=== PATIENT | male | born 1960 ===

== ENCOUNTER 2022-05-10 10:47 | Outpatient (CLI) | payer OTHER | END 2022-05-10 10:48 | disposition short-term general hospital (02) | LOC: EMS 10:47 | DX: I21.3 ST elevation (STEMI) myocardial infarction of unspecified site (principal) | CPT/HCPCS: A0425; A0427 ==

== ENCOUNTER 2023-07-28 10:26 | Outpatient (CLI) | payer MEDICARE, OTHER ==
[2023-07-28 18:00] LABS: CHOL/HDL RATIO 6.1 (<5.0); CHOLESTEROL 233 mg/dL; HDL CHOLESTEROL 38 mg/dL; LDL CHOLESTEROL,CALCULATED 163 mg/dL; LDL/HDL RATIO 4.3 (<3.6); TRIGLYCERIDES 162 mg/dL (48-352); VLDL CHOLESTEROL 32 mg/dL
== END 2023-07-28 10:27 | disposition home or self-care (01) ==
LOC: LAB.N 10:26
PROVIDERS: ATTEND Internal Medicine
DX: I25.119 Atherosclerotic heart disease of native coronary artery with unspecified angina pectoris (principal)
CPT/HCPCS: 36415; 80061; 83721